=== PATIENT | male | born 1975 | race African-American/Black ===

== ENCOUNTER 2017-06-04 22:11 | Observation (INO) | payer SELFPAY ==
[~2017-06-04] VITALS: Ht 185.4 cm; Wt 90.0 kg
[2017-06-04] MEDS ORDERED: SODIUM CHLOR 0.9% 1000 ML INJ 1,000 ML IV SCH (22:23)
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
[2017-06-04 22:27] VITALS: BP 133/77; PULSE 96; RESP 19; TEMP 98.6; O2SAT 100
[2017-06-04] MEDS ORDERED: SODIUM CHLORIDE 0.9% FLUSH 5 ML FLUSH IV FLUSH PRN (22:30)
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
[2017-06-04 22:46] VITALS: RESP 16; O2SAT 98
[2017-06-04 22:57] LABS: AUTOMATED NEUTROPHIL # 3.7 TH/MM3 (1.8-7.7); BASOPHIL # 0.1 TH/MM3 (0-0.2); BASOPHIL % 1.1 % (0.0-2.0); EOSINOPHIL % 0.6 % (0.0-4.0); HEMATOCRIT 40.7 % (39.0-51.0); LYMPHOCYTE # 1.9 TH/MM3 (1.0-4.8); MEAN CELL VOLUME 90.2 FL (80.0-100.0); MEAN CORPUSCULAR HEMOGLOBIN 29.5 PG (27.0-34.0); MEAN CORPUSCULAR HGB CONC 32.7 % (32.0-36.0); MONO % 11.3 % (0.0-8.0); PLATELET COUNT 362 TH/MM3 (150-450); RED BLOOD COUNT 4.51 MIL/MM3 (4.50-5.90); RED CELL DISTRIBUTION WIDTH 14.4 % (11.6-17.2); WHITE BLOOD COUNT 6.5 TH/MM3 (4.0-11.0)
[2017-06-04 22:58] LABS: HEMO FLAGS AUTO DIFF
--- NOTE | 2017-06-04 23:21 | RADRPT ---
EXAM DATE/TIME: 06/04/2017 23:05 [facility] COMPARISON: No previous studies available for comparison. INDICATIONS : Seizure. RADIATION DOSE: 52.13 CTDIvol (mGy) MEDICAL HISTORY : Non-responsive. SURGICAL HISTORY : Non-responsive. ENCOUNTER: Initial ACUITY: 1 day PAIN SCALE: Non-responsive LOCATION: cranial TECHNIQUE: Multiple contiguous axial images were obtained of the head. Using automated exposure control and adj ustment of the mA and/or kV according to patient size, radiation dose was kept as low as reasonably a chievable to obtain optimal diagnostic quality images. DICOM format image data is available electro nically for review and comparison. FINDINGS: CEREBRUM: The ventricles are normal for age. No evidence of midline shift, mass lesion, hemorrhage or acute in farction. No extra-axial fluid collections are seen. POSTERIOR FOSSA: The cerebellum and brainstem are intact. The 4th ventricle is midline. The cerebellopontine angle i s unremarkable. EXTRACRANIAL: The visualized portion of the orbits is intact. SKULL: The calvaria is intact. No evidence of skull fracture. CONCLUSION: Normal examination. Mild sinus disease. Saud Harris MD on June 04, 2017 at 23:19 Board Certified Radiologist. This report was verified electronically.
[2017-06-04 23:23] LABS: APTT (PATIENT) 23.8 SEC (24.3-30.1); PROTHROMBIN TIME - PATIENT 11.2 SEC (9.8-11.6)
[2017-06-04 23:24] LABS: ANION GAP 12 MEQ/L (5-15); AST (GOT) 24 U/L (15-37); BICARBONATE 22.7 MEQ/L (21.0-32.0); BLOOD UREA NITROGEN 10 MG/DL (7-18); CHLORIDE 106 MEQ/L (98-107); GLOMERULAR FILTRATION RATE 44 ML/MIN (>89); POTASSIUM 3.4 MEQ/L (3.5-5.1); SODIUM (NA) 141 MEQ/L (136-145)
--- NOTE | 2017-06-04 23:30 | RADRPT ---
EXAM DATE/TIME: 06/04/2017 23:05 [facility] COMPARISON: No previous studies available for comparison. INDICATIONS : Seizure. RADIATION DOSE: 27.34 CTDIvol (mGy) MEDICAL HISTORY : Non-responsive. SURGICAL HISTORY : Non-responsive. ENCOUNTER: Initial ACUITY: 1 day PAIN SCALE: Non-responsive LOCATION: neck TECHNIQUE: Volumetric scanning of the cervical spine was performed. Multiplanar reconstructions in the sagittal, coronal and oblique axial planes were performed. Using automated exposure control and adjustment o f the mA and/or kV according to patient size, radiation dose was kept as low as reasonably achievable to obtain optimal diagnostic quality images. DICOM format image data is available electronically f or review and comparison. FINDINGS: VERTEBRAE: Normal vertebral body height. Mild intervertebral disc space narrowing at C6-7 ALIGNMENT: No evidence of subluxation. C2-C3: The bony spinal canal is normal in size. No evidence of disc bulge or herniation. The neural forami na are bilaterally patent. C3-C4: The bony spinal canal is normal in size. No evidence of disc bulge or herniation. The neural forami na are bilaterally patent. C4-C5: The bony spinal canal is normal in size. No evidence of disc bulge or herniation. The neural forami na are bilaterally patent. C5-C6: The bony spinal canal is normal in size. No evidence of disc bulge or herniation. The neural forami na are bilaterally patent. C6-C7: The bony spinal canal is normal in size. No evidence of disc bulge or herniation. The neural forami na are bilaterally patent. C7-T1: The bony spinal canal is normal in size. No evidence of disc bulge or herniation. The neural forami na are bilaterally patent. CONCLUSION: No evidence of an acute fracture. Overall straightening of the vertebral bodies. Disc space height na rrowing at C6-7. Saud Harris MD on June 04, 2017 at 23:28 Board Certified Radiologist. This report was verified electronically.
[2017-06-04 23:35] LABS: ACETAMINOPHEN LESS THAN 2.0 MCG/ML (10.0-30.0); ALCOHOL 23 MG/DL (0-5); ALKALINE PHOSPHATASE 98 U/L (45-117); ALT (GPT) 37 U/L (12-78); CREATINE KINASE 718 U/L (39-308); TOTAL BILIRUBIN ADULT 0.2 MG/DL (0.2-1.0)
[2017-06-04 23:37] LABS: EOSINOPHILS 1 % (0-4); NEUTROPHIL # MANUAL DIFF 3.6 TH/MM3 (1.8-7.7); POLYS (SEG NEUTROPHILS) 55 % (16-70); SCAN/DIFF FINAL DIFF MANUAL; WBC DIFF SAMPLE 100
[2017-06-04 23:47] LABS: CKMB 6.2 NG/ML (0.5-3.6)
[2017-06-05 01:00] VITALS: BP 136/75; PULSE 87; RESP 16; O2SAT 98
[2017-06-05] MEDS ORDERED: SODIUM CHLOR 0.9% 1000 ML INJ 1,000 ML IV ONE (01:00)
[2017-06-05] MEDS ORDERED: POTASSIUM CHLORIDE 20 MEQ CONTROLLED RELEASE TAB PO ONE ×2 (01:00→01:30)
[2017-06-05] MEDS: SODIUM CHLOR 0.9% 1000 ML INJ 1,000 ML IV SCH ×2 (01:12→13:16)
[2017-06-05] MEDS ORDERED: LORazepam 2 MG/ML VIAL IV PUSH PRN ×5 (01:15→01:30)
[2017-06-05] MEDS ORDERED: SODIUM CHLORIDE 0.9% FLUSH 10 ML FLUSH IV FLUSH PRN (01:15)
[2017-06-05] MEDS ORDERED: ONDANSETRON HCL 4 MG/2 ML VIAL IV PUSH PRN (01:15)
[2017-06-05] MEDS ORDERED: LORazepam 2 MG TAB PO PRN (01:30)
[2017-06-05] MEDS ORDERED: LORazepam 1 MG TAB PO PRN (01:30)
[2017-06-05] MEDS ORDERED: hydrALAZINE HCL 20 MG/ML VIAL IV PUSH PRN (01:30)
[2017-06-05] MEDS ORDERED: FLUMAZENIL 0.5 MG/5 ML VIAL IV PUSH PRN (01:30)
[2017-06-05] MEDS ORDERED: cloNIDine HCL 0.1 MG TAB PO PRN (01:30)
--- NOTE | 2017-06-05 01:34 | HHI.HP ---
[facility] Service [facility] Primary Care Physician Unknown Admission Diagnosis AMS, Seizure activity Diagnoses: Travel History International Travel<30 Days: No Contact w/Intl Traveler <30 Da: No Traveled to Known Affected Are: No History of Present Illness 31-year-old appearing male brought to the emergency department by EMS after sustaining a witnessed generalized tonic-clonic seizure that lasted approximately 10 minutes. The patient was apparently standing outside of a convenience store when he started to seize. EMS was called and noted that the patient was postictal upon their arrival. When asked his name, the patient replies it is Raji Swanson. He is cooperative during our interview and admits to drinking daily although will not quantify the amount of alcohol that he usually drinks. He denies any illicit drugs. Patient is able to move all of his extremities. CT of the head, chest x-ray and cervical spine CT within normal limits. Patient's laboratory values significant for a creatinine of 1.39 , ammonia 48, and total creatinine kinase of 718. Alcohol level 23. Review of Systems Patient refuses to answer most questions although endorses a headache. Past Family Social History Past Medical History Hypertension Past Surgical History None Reported Medications Patient reports taking an unspecified blood pressure medication. Allergies: Coded Allergies: No Known Allergies (Unverified , 06/04/17) Family History Patient refuses to answer. Social History Admits to daily alcohol use. Denies marijuana or illicit drugs. Smokes 1 pack per day 4 years. Physical Exam Vital Signs Vital Signs Date Time Temp Pulse Resp B/P (MAP) Pulse Ox O2 Delivery O2 Flow Rate FiO2 06/04/17 22:46 16 98 Nasal Cannula 3.00 06/04/17 22:27 98.6 96 19 133/77 (95) 100 Physical Exam GENERAL: male lying in bed, drowsy. Arouses to voice. SKIN: No rashes, ecchymoses or lesions. Cool and dry. Abrasion on left elbow. HEAD: Atraumatic. Normocephalic. No temporal or scalp tenderness. EYES: Pupils sluggish. Extraocular motions intact. No scleral icterus. No injection or drainage. ENT: Nose without bleeding, purulent drainage or septal hematoma. Throat without erythema, tonsillar hypertrophy or exudate. Uvula midline. Airway patent. Mucous membranes dry. NECK: Trachea midline. No JVD or lymphadenopathy. Supple, nontender, no meningeal signs. CARDIOVASCULAR: Regular rate and rhythm without murmurs, gallops, or rubs. RESPIRATORY: Clear to auscultation. Breath sounds equal bilaterally. No wheezes , rales, or rhonchi. GASTROINTESTINAL: Abdomen soft, non-tender, nondistended. No hepato-splenomegaly , or palpable masses. No guarding. MUSCULOSKELETAL: Extremities without clubbing, cyanosis, or edema. No joint tenderness, effusion, or edema noted. NEUROLOGICAL: Awake and alert. Cranial nerves II through XII intact. Motor and sensory grossly within normal limits. Slurred speech. Laboratory Laboratory Tests Test 06/04/17 22:41 White Blood Count 6.5 Red Blood Count 4.51 Hemoglobin 13.3 Hematocrit 40.7 Mean Corpuscular Volume 90.2 Mean Corpuscular Hemoglobin 29.5 Mean Corpuscular Hemoglobin Concent 32.7 Red Cell Distribution Width 14.4 Platelet Count 362 Mean Platelet Volume 8.2 Neutrophils (%) (Auto) 58.0 Lymphocytes (%) (Auto) 29.0 Monocytes (%) (Auto) 11.3 Eosinophils (%) (Auto) 0.6 Basophils (%) (Auto) 1.1 Neutrophils # (Auto) 3.7 Lymphocytes # (Auto) 1.9 Monocytes # (Auto) 0.7 Eosinophils # (Auto) 0.0 Basophils # (Auto) 0.1 CBC Comment AUTO DIFF Differential Total Cells Counted 100 Neutrophils % (Manual) 55 Lymphocytes % 37 Monocytes % 7 Eosinophils % 1 Neutrophils # (Manual) 3.6 Differential Comment FINAL DIFF MANUAL Prothrombin Time 11.2 Prothromb Time International Ratio 1.0 Activated Partial Thromboplast Time 23.8 Blood Urea Nitrogen 10 Creatinine 1.39 Random Glucose 104 Total Protein 7.2 Albumin 3.3 Calcium Level 7.7 Alkaline Phosphatase 98 Aspartate Amino Transf (AST/SGOT) 24 Alanine Aminotransferase (ALT/SGPT) 37 Total Bilirubin 0.2 Sodium Level 141 Potassium Level 3.4 Chloride Level 106 Carbon Dioxide Level 22.7 Anion Gap 12 Estimat Glomerular Filtration Rate 44 Ammonia 48 Total Creatine Kinase 718 Creatine Kinase MB 6.2 Creatine Kinase MB % 0.9 Troponin I LESS THAN 0.02 Thyroid Stimulating Hormone 3rd Gen 0.698 Salicylates Level 2.1 Acetaminophen Level LESS THAN 2.0 Ethyl Alcohol Level 23 Result Diagram: 06/04/17224006/04/172240 Cali VTE Risk Assessment Cali VTE Risk Assessment: No/Low Risk (score <= 1) Samirini Risk Assessment Model Point Value = 1 Point Value = 2 Point Value = 3 Point Value = 5 Age 41-60 Minor surgery BMI > 25 kg/m2 Swollen legs Varicose veins or History of unexplained or recurrent spontaneous Oral contraceptives or hormone replacement Sepsis (< 1 month) Serious lung disease, including pneumonia (< 1 month) Abnormal pulmonary function Acute myocardial infarction Congestive heart failure (< 1 month) History of inflammatory bowel disease Medical patient at bed rest Age 61-74 Arthroscopic surgery Major open surgery (> 45 min) Laparoscopic surgery (> 45 min) Malignancy Confined to bed (> 72 hours) Immobilizing plaster cast Central venous access Age >= 75 History of VTE Family history of VTE Factor V Leiden Prothrombin [id number] Lupus anticoagulant Anticardiolipin antibodies Elevated serum homocysteine Heparin-induced thrombocytopenia Other congenital or acquired thrombophilia Stroke (< 1 month) Elective arthroplasty Hip, pelvis, or leg fracture Acute spinal cord injury (< 1 month) Prophylaxis Regimen Total Risk Factor Score Risk Level Prophylaxis Regimen 0-1 Low Early ambulation 2 Moderate Order ONE of the following: *Sequential Compression Device (SCD) *Heparin 5000 units SQ BID 3-4 Higher Order ONE of the following medications: *Heparin 5000 units SQ TID *Enoxaparin/Lovenox 40 mg SQ daily (WT < 150 kg, CrCl > 30 mL/min) *Enoxaparin/Lovenox 30 mg SQ daily (WT < 150 kg, CrCl > 10-29 mL/min) *Enoxaparin/Lovenox 30 mg SQ BID (WT < 150 kg, CrCl > 30 mL/min) AND/OR *Sequential Compression Device (SCD) 5 or more Highest Order ONE of the following medications: *Heparin 5000 units SQ TID (Preferred with Epidurals) *Enoxaparin/Lovenox 40 mg SQ daily (WT < 150 kg, CrCl > 30 mL/min) *Enoxaparin/Lovenox 30 mg SQ daily (WT < 150 kg, CrCl > 10-29 mL/min) *Enoxaparin/Lovenox 30 mg SQ BID (WT < 150 kg, CrCl > 30 mL/min) AND *Sequential Compression Device (SCD) Assessment and Plan Assessment and Plan 31-year-old appearing male brought to the emergency department after witnessed generalized tonic clonic seizure. Per the patient, he has never had a seizure before. 1. Witnessed seizure UDS pending Possibly alcohol-related as patient states he drinks daily, alcohol level 23 EEG pending Nothing by mouth until swallow eval Neurology consulted, appreciate recommendations CK 718, likely secondary to seizure activity, trend Seizure precautions Ativan prn 2. MAXIMILIAN Cr 1.39, no baseline for comparison IVF hydration Monitor 3. Hypokalemia Repleted Follow-up BMP 4. Hypertension Patient currently normotensive When necessary hydralazine/clonidine 5. Alcohol abuse CIWA protocol FEN Heart healthy diet NS at 125 cc/hr AMANDAs Linda Aguilar MD Jun 05, 2017 01:34
[2017-06-05 01:51] LABS: BLOOD, URINE NEG (NEG); GLUCOSE,URINE NEG (NEG); KETONE, URINE 10 mg/dL (NEG); MUCUS URINE FEW /lpf (OCC); NITRITE,URINE NEG (NEG); PH, URINE 5.5 (5.0-8.5); SQUAMOUS EPITHELIAL CELL URINE <1 /hpf (0-5); URINE COLOR YELLOW (YELLW/STRAW)
[2017-06-05 01:52] LABS: COMMENT (UR) CATH-CULT NOT IND; CULTURE IF INDICATED CATH CULTURE NOT IND
[2017-06-05 03:43] VITALS: BP 136/68; PULSE 78; RESP 18; TEMP 98.9; O2SAT 97
[2017-06-05 04:18] LABS: AUTOMATED NEUTROPHIL # 8.5 TH/MM3 (1.8-7.7); BASOPHIL # 0.1 TH/MM3 (0-0.2); BASOPHIL % 0.5 % (0.0-2.0); EOSINOPHIL % 0.3 % (0.0-4.0); HEMO FLAGS DIFF FINAL; LYMPH % 12.5 % (9.0-44.0); LYMPHOCYTE # 1.4 TH/MM3 (1.0-4.8); MEAN CELL VOLUME 89.7 FL (80.0-100.0); MEAN CORPUSCULAR HEMOGLOBIN 30.2 PG (27.0-34.0); MEAN CORPUSCULAR HGB CONC 33.6 % (32.0-36.0); MONO % 8.8 % (0.0-8.0); NEUT % 77.9 % (16.0-70.0); PLATELET COUNT 335 TH/MM3 (150-450); RED BLOOD COUNT 4.35 MIL/MM3 (4.50-5.90); WHITE BLOOD COUNT 10.9 TH/MM3 (4.0-11.0)
[2017-06-05 04:34] LABS: BICARBONATE 28.1 MEQ/L (21.0-32.0); POTASSIUM 3.8 MEQ/L (3.5-5.1)
[2017-06-05 04:53] LABS: CKMB 5.3 NG/ML (0.5-3.6)
[2017-06-05] MEDS ORDERED: SENNOSIDES 8.6 MG TAB PO PRN (07:45)
[2017-06-05] MEDS ORDERED: ACETAMINOPHEN 325 MG TAB PO PRN ×2 (07:45)
[2017-06-05] MEDS ORDERED: NALOXONE HCL 0.4 MG/ML AMP IV PUSH PRN (07:45)
[2017-06-05] MEDS ORDERED: LACTULOSE SYRUP 20 GM/30 ML CUP PO PRN (07:45)
[2017-06-05] MEDS ORDERED: MAGNESIUM HYDROXIDE SUSP 30 ML CUP PO PRN (07:45)
[2017-06-05] MEDS ORDERED: ONDANSETRON HCL 4 MG/2 ML VIAL IVP PRN (07:45)
[2017-06-05] MEDS ORDERED: BISACODYL 10 MG SUPP RECTAL PRN (07:45)
[2017-06-05 07:56] VITALS: BP 150/77; PULSE 69; RESP 20; TEMP 96.2; O2SAT 98
[2017-06-05] MEDS ORDERED: SODIUM CHLORIDE 0.9% FLUSH 10 ML FLUSH IV FLUSH SCH (09:00)
[2017-06-05] MEDS ORDERED: DOCUSATE SODIUM 50 MG/SENNA 8.6 MG TAB PO SCH (09:00)
[2017-06-05] MEDS ORDERED: LACTULOSE SYRUP 20 GM/30 ML CUP PO SCH (09:00)
[2017-06-05 11:21] VITALS: BP 138/95; PULSE 65; RESP 21; TEMP 96.5; O2SAT 97
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
[2017-06-05 15:56] VITALS: BP 138/90; PULSE 67; RESP 18; TEMP 97; O2SAT 99
--- NOTE | 2017-06-05 16:27 | PD.AMA ---
Against Medical Advice Note Pt Condition on Discharge: Stable AMA Statement Patient Raji Swanson has decided to leave the hospital against medical advice. This patient has the capacity to refuse care and understands the risks of leaving, including permanent disability and/or , and has had an opportunity to ask questions about his condition. The patient has been informed that he may return for care at any time, and follow up has been arranged/ advised. Mian Cates MD Jun 05, 2017 16:27
--- NOTE | 2017-06-05 19:07 | EKG ---
Date Performed: 06/04/2017 Time Performed: 22:23:28 PTAGE: 89 years EKG: Sinus rhythm POSSIBLE LEFT ATRIAL ENLARGEMENT POSSIBLE RIGHT VENTRICULAR CONDUCTION DELAY NONSPECIFIC T-WAVE ABNO RMALITY BORDERLINE ECG NO PREVIOUS TRACING DOCTOR: May Partida Interpretating Date/Time 06/05/2017 19:05:46
--- NOTE | 2017-06-06 08:11 | MG ---
cc: VERONICA MADRID M.D. Lab No: Date: 06/05/2017 Age: Sex: M Race: ELECTROENCEPHALOGRAM NUMBER [id number] A 42-year-old man. ROOM H86 Generalized seizure activity. Fell down. I am not sure what his medical record number, it is Dr. Aguilar in the ER. DESCRIPTION The recording shows symmetric 9-10 Hz, 60 microvolt posterior rhythm. The recording overall is synchronous and symmetric. No hemisphere asymmetries are noted. No epileptiform or seizure activity is seen. Photic stimulation was performed without significant posterior driving. Hyperventilation was performed without significant change in the background. IMPRESSION Normal awake EEG. No evidence for a focal or diffuse abnormality. MD DYLAN Galindo/KK /5:37 PM /8:15 AM
--- NOTE | 2017-06-07 06:45 | MB ---
cc: SANDER DAY MD DATE OF CONSULTATION 06/06/2017 REASON FOR CONSULTATION Seizures HISTORY OF PRESENT ILLNESS Mr. Swanson is a 42-year-old -[place] male who was brought to the [facility] emergency department by EMS after he had sustained a witnessed generalized tonic-clonic seizure that lasted approximately 10 minutes. He was reportedly standing outside of a convenience store when started to seize. The patient was postictal upon EMS arrival. During the encounter, the patient was a poor historian thus medical history was mainly obtained from the medical records. He drinks alcohol daily. Denies illicit drugs. The emergency room head CT, chest x-ray and cervical spine CT were reported with no acute abnormality. Labs revealed a creatinine of 1.39, ammonia 48, creatinine kinase of 718 and an alcohol level of 23. REVIEW OF SYSTEMS A 12-point review of systems is negative except for what is stated in the HPI. PAST MEDICAL HISTORY Hypertension PAST SURGICAL HISTORY Noncontributory ALLERGIES No known allergies. FAMILY HISTORY Noncontributory SOCIAL HISTORY Daily alcohol use. Denies marijuana or illicit drug abuse. Smokes one-pack a day. PHYSICAL EXAMINATION GENERAL: The patient is a poor historian, anxious, sleepy. HEENT: Atraumatic, normocephalic. Intact hearing. Intact vision. NECK: Trachea midline. No signs of meningeal irritation. CARDIOVASCULAR: Regular rate and rhythm. No murmurs. RESPIRATORY: Clear to auscultation. No wheezes. GASTROINTESTINAL: Soft abdomen, nontender. No distension. MUSCULOSKELETAL: No clubbing, cyanosis or edema. There is an abrasion on the left elbow. NEUROLOGIC: Awake, alert and oriented to time, person and place, sleepy at times during the encounter. Cranial nerves II-XII are grossly intact. Moves all extremities equally 5/5. No abnormal movement. Intact [id number]. Intact sensation throughout to light touch and temperature. Reflexes 2+ bilateral symmetrical. Plantars are bilateral downgoing. LABORATORY DATA White BC 10.9, hemoglobin 13.1, platelet 335. Sodium 142, potassium 3.8, anion gap 7, BUN 10, creatinine 105, calcium 8.3, AST 24, ALT 37, alkaline phosphatase 98, ammonia 48, CK 718, albumin 3.3.UDS positive for cocaine and cannabinoids. Alcohol elevated at 23, INR 1. DIAGNOSTICS IMAGING - Head CT scan without contrast reported as normal. DIAGNOSTIC IMPRESSION 1. Seizure 2. Likely provoked seizure possible etiology alcohol/Cocaine -related 3. MAXIMILIAN 4. Hypokalemia 5. Hypertension 6. Alcohol abuse PLAN 1. Neuro checks q4 hourly 2. EEG unremarkable for any ictal activity 3. No indication to start antiepileptic medication. 4. Seizure precautions. 5. CIWA protocol 6. Abstinence 7. Continue supportive medical therapy. 8. Treat hypertension. 9. No need for further neurologic workup. 10. Follow up as an outpatient. 11. Please call for questions. Thank you for the opportunity to participate in the care of your patient. MD DAKSHA Desai/LEROY /10:44 PM /6:35 AM HELENE
== END 2017-06-05 17:09 | disposition home or self-care (01) ==
LOC: NEPE 22:11 → NEDA 06-05 00:53 → EDBD 06-05 00:53 → NEPHCDU 06-05 03:17
PROVIDERS: ADMIT Internal Medicine; ATTEND Internal Medicine
DX: G40.409 Other generalized epilepsy and epileptic syndromes, not intractable, without status epilepticus (principal); M62.82 Rhabdomyolysis; F10.10 Alcohol abuse, uncomplicated; Y90.1 Blood alcohol level of 20-39 mg/100 ml; F14.10 Cocaine abuse, uncomplicated; R40.0 Somnolence; I10 Essential (primary) hypertension; F17.210 Nicotine dependence, cigarettes, uncomplicated; E87.6 Hypokalemia; N17.9 Acute kidney failure, unspecified; R79.1 Abnormal coagulation profile; R94.31 Abnormal electrocardiogram [ECG] [EKG]
CPT/HCPCS: 70450; 71010; 72125; 80048; 80053; 80307; 81001; 82140; 82550; 82552; 84443; 84484; 85025; 85027; 85610; 85730; 93005; 95819; 96360; 96361; 99285; G0378; J7030; 85007